=== PATIENT | female | born 1950 | race Caucasian/White ===

== ENCOUNTER 2023-03-06 18:10 | Observation (INO) | payer OTHER, SELFPAY ==
--- NOTE | ~2023-03-06 | CT_ITS ---
Non-contrast Head CT History: Weakness Technique: Axial non-contrast imaging of the brain was performed. Dose reduction technique was used on this scan by utilizing automated exposure control and iterative reconstruction technique. The dose -length product (DLP) was 756.67 mGy-cm. Findings: There is no evidence of intracranial hemorrhage, mass lesion, or acute infarct. There is e xtensive encephalomalacia involving the right posterior temporal, occipital, and high posterior right parietal lobes. There are small metallic foreign bodies are clips in the region of encephalomalacia. There are additional metallic foreign bodies are clips in the cerebellum. The ventricles and subarac hnoid spaces are mildly dilated. Right parietal craniotomy change noted. The visualized paranasal si nuses and mastoid air cells are clear. Impression: No acute abnormality seen. Extensive encephalomalacia involving the right posterior temporal lobe, right occipital lobe, and hig h posterior right parietal lobe. Findings could be posttraumatic or postsurgical in nature. Correlate with relevant clinical history. Reviewed, dictated and finalized at location . LY COACH Impression: No acute abnormality seen. Extensive encephalomalacia involving the right posterior temporal lobe, right o ccipital lobe, and high posterior right parietal lobe. Findings could be posttr aumatic or postsurgical in nature. Correlate with relevant clinical history.
--- NOTE | ~2023-03-06 | XR_ITS ---
EXAMINATION: XR chest 1V portable DATE: 03/06/2023 20:07 INDICATION: Weakness. Hypertension. TECHNIQUE: A single frontal view of the chest was obtained. COMPARISON: None. FINDINGS: There is mild atelectasis in left lower lung zone. No pleural effusion or pneumothorax. The heart size is normal. Breast implants are noted. IMPRESSION: 1. Mild atelectasis in left lower lung zone. Reviewed, dictated and finalized at location E. SECURITY OFFICER
[2023-03-06 18:06] VITALS: BP 151/52; PULSE 87; RESP 17; TEMP 36.4; O2SAT 100
[2023-03-06 18:16] LABS: Glucose Point of Care 74 mg/dl (65-105)
[2023-03-06 19:06] VITALS: BP 161/89; PULSE 82; RESP 15; O2SAT 100
[2023-03-06 19:19] VITALS: PULSE 89; RESP 17; O2SAT 100
--- NOTE | 2023-03-06 19:19 | ECG_ITS ---
Measurements Intervals [place] Rate: 89 P: 31 NH: 152 QRS: -3 QRSD: 133 T: 24 QT: 393 QTc: 481 Interpretive Statements SINUS RHYTHM RIGHT BUNDLE BRANCH BLOCK BASELINE ARTIFACT- I, II, III, AVR, AVF ABNORMAL ECG NO PREVIOUS ECG AVAILABLE FOR COMPARISON Electronically Signed On 03-07-2023 6:37:59 LOCOMOTIVE OPERATOR by Javier Ba D.O.
--- NOTE | 2023-03-06 19:47 | ED.NEUROSD ---
HPI - Neuro Symptoms/Deficit General Chief Complaint: Neuro Symptoms/Deficit Stated Complaint: neuro symptoms Time Seen by Provider: 03/06/23 19:45 Source: patient and family (sons) Mode of arrival: EMS Limitations: no limitations History of Present Illness HPI Narrative: Patient reportedly started experiencing left sided weakness and slurred speech at 3pm. EMS arrived and found her blood sugar to be 38mg/dL for which she received 1mg glucagon with near immediate resolution of symptoms and without recurrence of symptoms. She has been having right thigh pain and left knee pain after a fall she sustained on . She had presented to [facility] for these injuries for which she received Xray imaging which showed no fractures. She was discharged with advice to take Tylenol. She has been taking 1000mg BID as well as Aleve BID but has remained sore/achy which has limited her mobility. She previously used a 4 prong cane but also has a roller walker but is still unable to get around easily recently secondary to pain. She has essentially been bed bound. In order to limit her movements, she has also decresaed her PO intake so that she will not have to go to the bathroom frequently. LBM had been though she did have an episode of loose non bloody stool while in the ED stretcher. She states that she had been having some abdominal distention but not pain prior to this but no longer, has been passing flatus throughout. Denies opiate use. States she has been taking Boost/Ensure for nutrition but otherwise limited PO intake. Not nauseated, it has been intentional. She takes metformin BID (admits to missing some evening doses occasionally), glimepiride QAM, and pioglitazone/thiazolidinedione QAM. Took AM doses of all 3 today between 8 and 9 am. Also on lisinopril, HCTZ, Tramadol, and simvastatin and HCTZ. Her only complaint at this time is pain. Related Data Allergies Allergy/AdvReac Type Severity Reaction Status Date / Time No Known Allergies Allergy Verified 03/06/23 18:11 [facility] Past Medical History Medical History Non-insulin dependent diabetes mellitus Social History Social History Living arrangements: alone Exam Narrative: GENERAL: Well-appearing, well-nourished, and in no acute distress. HEAD: Normocephalic, atraumatic. EYES: Non injected, non icteric ENT: Nares clear, no rhinorrhea or epistaxis. NECK: Supple. CHEST: Speaks in full sentences. No respiratory distress. HEART: Regular rate and rhythm. . ABDOMEN: Obese, Soft, nondistended. Non tender to palpation. EXTREMITIES: No upper extremity drift. Edema in bilateral lower extremities. Difficulty lifting R leg off of bed secondary to pain. No ecchymosis along right lateral proximal leg. SKIN: Warm, dry, no rash. NEURO: No focal deficits. Alert and oriented x3. Speaks clearly without aphasia or dysarthria. No abnormal movements appreciated. PSYCH: Normal mood and affect. Course Vital Signs Vital signs: Vital Signs Temperature 97.5 F L 03/06/23 18:06 Pulse Rate 87 03/06/23 18:06 Respiratory Rate 17 03/06/23 18:06 Blood Pressure 151/52 H 03/06/23 18:06 Pulse Oximetry 100 03/06/23 18:06 Oxygen Delivery Room Air 03/06/23 18:06 Temperature 97.5 F L 03/06/23 18:06 Pulse Rate 84 03/06/23 22:52 Respiratory Rate 16 03/06/23 22:52 Blood Pressure 149/67 H 03/06/23 22:52 Pulse Oximetry 100 03/06/23 22:52 Oxygen Delivery Room Air 03/06/23 18:06 MDM - Neuro Symptoms/Deficit MDM Narrative Medical decision making narrative: Patient presents with left sided weakness and slurred speech that occured at 3pm. Resolved after administration of glucagon by EMS due to BS 38. No recurrence of symptoms. Patient is afebrile with reassuring VS. Physical exam without focal neurological defects though has difficulty lifting
[2023-03-06 20:23] LABS: Basophils Percent Auto 0.2 % (0.2-1.2); Eosinophils Percent Auto 0.1 % (0-4.4); Hemoglobin 11.3 g/dL (12.0-15.0); Immature Granulocyte Absolute 0.06 K/mm3 (0.00-0.031); Immature Granulocyte Percent A 0.5 % (0-0.5); Lymphocytes Absolute Auto 1.37 K/mm3 (0.9-3.2); Lymphocytes Percent Auto 10.5 % (18.3-44.2); Mean Corpuscular HGB Conc 31.4 g/dl (32-36); Mean Corpuscular Volume 95.5 fl (80-100); Mean Platelet Volume 10.8 fl (7.4-10.4); Monocytes Absolute Auto 0.8 K/mm3 (0.1-0.6); Monocytes Percent Auto 6.1 % (2.6-8.5); Neutrophils Absolute Auto 10.8 K/mm3 (1.3-6.7); Neutrophils Percent Auto 82.6 % (45.5-73.1); Platelet Count Result 324 k/mm3 (150-375); Red Blood Count 3.77 M/mm3 (4.2-5.4); White Blood Count 13.1 K/mm3 (4.5-10.0)
[2023-03-06 20:37] VITALS: PULSE 84; RESP 20; O2SAT 100
[2023-03-06 20:37] LABS: Alanine Aminotransferase 19 U/L (6-35); Albumin Level 4.4 g/dL (3.5-5.1); Alkaline Phosphatase 53 U/L (38-126); Anion Gap 10 mmol/L (8-16); Aspartate Amino Transferase 35 U/L (14-36); Blood Urea Nitrogen 41 mg/dL (7-17); Calcium 9.8 mg/dL (8.4-10.2); Carbon Dioxide 30 mmol/L (22-30); Chloride 98 mmol/L (98-107); Estimated CRCL calculation 77 ml/min; Estimated Glomerular Filt Rate > 60; Glucose 285 mg/dL (65-110); Potassium 4.7 mmol/L (3.4-5.0); Sodium 138 mmol/L (137-145)
[2023-03-06 20:42] LABS: Partial Thromboplastin Time 32.8 SECONDS (22.3-36.8); Prothrombin Time 13.4 Seconds (11.1-14.7)
[2023-03-06 20:46] LABS: Troponin I < 0.012 ng/mL (0.000-0.034)
[2023-03-06] MEDS: OCTREOTIDE ACETATE 100 MCG/ML VIAL SUB-Q (21:19)
[2023-03-06 21:22] VITALS: BP 139/66; PULSE 87; RESP 20; O2SAT 99
--- NOTE | 2023-03-06 21:23 | PC.NURSE ---
Pt c/o hip pain. EDP made aware.
[2023-03-06] MEDS: HYDROcodone/acetaminophen (*CRX) 5-325 MG TABLET 1 TAB PO (21:29)
[2023-03-06] MEDS: ACETAMINOPHEN 325 MG TABLET 650 MG PO (21:29)
[2023-03-06 22:41] LABS: Glucose Point of Care 181 mg/dl (65-105)
[2023-03-06 22:52] VITALS: BP 149/67; PULSE 84; RESP 16; O2SAT 100
--- NOTE | 2023-03-07 00:03 | PC.NURSE ---
Assumed care of pt. Report received from SHANNA Mcneal. Pt laying per cart with family at bedside. Pt wet and linen's changed.
[2023-03-07 00:32] LABS: Glucose Point of Care 192 mg/dl (65-105)
[2023-03-07 01:59] VITALS: BP 146/65; PULSE 81; RESP 20; TEMP 35.9; O2SAT 100
[2023-03-07 02:18] VITALS: BMI 38.7
--- NOTE | 2023-03-07 02:32 | ADMGEN ---
This patient, Jeimy Penn, was admitted to Medical Room 250-01. Patient/family oriented to hospital policies and general routines including ID bracelet, bed and alarms, visiting hours, pain management, procedures, bathroom and other care routines, personal items, smoking policy, room service/diet, and visiting hours. Information on how to activate the Rapid Response Team has been discussed. Patient/Family are encouraged to report perceived risks to care and to ask questions if they do not understand what they are told or what they should do.
[2023-03-07] MEDS: ACETAMINOPHEN 325 MG TABLET 650 MG PO (03:42)
[2023-03-07 05:25] VITALS: BP 141/62; PULSE 80; RESP 20; TEMP 36.1; O2SAT 99
[2023-03-07] MEDS: KETOROLAC 30 MG/ML VIAL (*BKC) IV PUSH (06:32)
--- NOTE | 2023-03-07 07:18 | PM.IMHP ---
H&P: HPI History of Present Illness Date/Time: 03/07/23 07:18 Chief Complaint: hypoglycemia left knee pain history of fall Narrative: This is a 72 year old female with a significant past medical history of vertigo, hypertension, hyperlipidemia, DM II who presented to the hospital with complaints of left sided weakness and slurred speech that started around 3 p.m. yesterday. EMS was called and they checked her blood glucose and she was found to be 38mg/dl. She was given 1mg glucagon with immediate resolution of her symptoms. Patient states that she sustained a ground level fall on and started having left knee pain and right thigh pain. She presented to the hospital in [place] where they did x-rays that did not show any acute fractures, she was released, and was told to take OTC medications for pain control. Patient went home and was taking Tylenol and Aleve however she did not have much relief. She normally uses just a cane to get around the house but has been requiring a wheeled walker due to her limited mobility. She admits to decreasing her po intake so that she did not have to get up as often to use the bathroom. She took her medications including metformin, glimepiride, and pioglitazone/thiazolidinedione earlier that morning which likely contributed to her hypoglycemic episode considering the decreased po intake. She is currently only complaining of left knee and right thigh pain. Patient lives alone and is concerned about her inability to get around and ambulate. She is being admitted for PT/OT evaluation and to set up outpatient rehab needs.Work up in the hospital included a chest x-ray that revealed mild atelectasis in the left lower lung zone. She also had a head CT which did not show any acute abnormality seen, extensive encephalomalacia involving the right posterior temporal lobe, right occipital lobe and high posterior right parietal lobe. EKG NSR with Right BBB with rate of 89. On examination today patient is alert and oriented x3, lying in the bed. She reports that her pain is 10/10 in her left knee and right thigh. VSS, she is on room air, she is afebrile. She denies any fever, chills, nausea, vomiting, diarrhea, abdominal pain, shortness of breath, or chest pain.Labs yesterday revealed WBC 13.1, Hgb 11.3, Hct 36.0, BG 181-285, liver enzymes normal, troponin negative. PT and OT are ordered to evaluate and treat. Case coordination consulted for outpatient rehab needs. Review of Systems Review of Systems: All systems reviewed & are unremarkable except as noted in HPI and below Constitutional: Constitutional: Reports as per HPI and Reports no additional constitutional complaints Eyes: Eyes: Reports as per HPI and Reports no additional eye complaints ENT: Reports system reviewed and no additional complaints, except as documented and Reports as per HPI Cardiovascular: Cardiovascular: Reports as per HPI and Reports no additional cardiovascular complaints Respiratory: Respiratory: Reports as per HPI and Reports no additional respiratory complaints Gastrointestinal: Gastrointestinal: Reports as per HPI and Reports no additional gastrointestinal complaints Genitourinary: Genitourinary: Reports no additional female genitourinary complaints and Reports as per HPI Musculoskeletal: Musculoskeletal: Reports no additional musculoskeletal complaints and Reports as per HPI Integumentary/Breasts: Skin/Breast: Reports system reviewed and no additional complaints, except as docu and Reports as per HPI Neurologic: Reports system reviewed and no additional complaints, except as documented and Reports as per HPI Psychiatric: Psychiatric: Reports no additional psychiatric complaints and Reports as per HPI [facility] Past Medical History Medical History (Updated 03/07/23 @ 13:20 by Marlene Angulo, DEV) Hyperlipidemia Hypertension Non-insulin dependent diabetes mellitus Vertigo Surgical History Surgical History (Updated 03/07/23 @ 12:54 by
[2023-03-07 08:00] VITALS: PULSE 80; RESP 20; O2SAT 99
[2023-03-07 08:20] LABS: Glucose Point of Care 182 mg/dl (65-105)
[2023-03-07] MEDS: PIOGLITAZONE HCL 30 MG TABLET PO (09:26)
[2023-03-07] MEDS: traMADol HCL (*CRX) 25 MG TABLET 75 MG PO ×3 (09:26→22:53)
[2023-03-07] MEDS: metFORMIN HCL 500 MG TABLET 1000 MG PO ×2 (09:26→17:46)
[2023-03-07] MEDS: hydroCHLOROthiazide 25 MG TABLET PO (09:26)
[2023-03-07] MEDS: lisinopriL 20 MG TABLET 40 MG PO (09:26)
[2023-03-07] MEDS: ENOXAPARIN 40 MG/0.4 ML SYRINGE SUB-Q (09:32)
[2023-03-07 12:22] LABS: Glucose Point of Care 177 mg/dl (65-105)
[2023-03-07 14:08] LABS: Basophils Percent Auto 0.3 % (0.2-1.2); Eosinophils Absolute Auto 0.1 K/mm3 (0-0.3); Eosinophils Percent Auto 1.3 % (0-4.4); Hematocrit 35.6 % (37.0-47.0); Immature Granulocyte Absolute 0.03 K/mm3 (0.00-0.031); Immature Granulocyte Percent A 0.4 % (0-0.5); Lymphocytes Absolute Auto 1.68 K/mm3 (0.9-3.2); Lymphocytes Percent Auto 23.3 % (18.3-44.2); Mean Corpuscular HGB Conc 30.9 g/dl (32-36); Mean Corpuscular Hemoglobin 29.8 pg (26-34); Mean Corpuscular Volume 96.5 fl (80-100); Mean Platelet Volume 10.6 fl (7.4-10.4); Monocytes Absolute Auto 0.7 K/mm3 (0.1-0.6); Monocytes Percent Auto 9.3 % (2.6-8.5); Neutrophils Absolute Auto 4.7 K/mm3 (1.3-6.7); Neutrophils Percent Auto 65.4 % (45.5-73.1); Platelet Count Result 311 k/mm3 (150-375); Red Blood Count 3.69 M/mm3 (4.2-5.4); White Blood Count 7.2 K/mm3 (4.5-10.0)
[2023-03-07 14:27] LABS: Alanine Aminotransferase 18 U/L (6-35); Albumin Level 4.2 g/dL (3.5-5.1); Alkaline Phosphatase 61 U/L (38-126); Anion Gap 8 mmol/L (8-16); Aspartate Amino Transferase 26 U/L (14-36); Blood Urea Nitrogen 40 mg/dL (7-17); Calcium 9.5 mg/dL (8.4-10.2); Carbon Dioxide 28 mmol/L (22-30); Chloride 101 mmol/L (98-107); Estimated CRCL calculation 50 ml/min; Estimated Glomerular Filt Rate 49; Glucose 231 mg/dL (65-110); Magnesium 1.7 mg/dL (1.6-2.3); Phosphorus 3.2 mg/dL (2.5-4.5); Potassium 4.6 mmol/L (3.4-5.0); Sodium 137 mmol/L (137-145)
[2023-03-07] MEDS: NAPROXEN 375 MG TABLET PO (16:16)
[2023-03-07 16:26] LABS: Hemoglobin A1C 5.8 % (<5.7)
[2023-03-07 16:54] VITALS: BP 135/63; PULSE 76; RESP 16; TEMP 36.1; O2SAT 97
[2023-03-07 17:13] LABS: Glucose Point of Care 156 mg/dl (65-105)
[2023-03-07 20:39] VITALS: BP 143/85; PULSE 80; RESP 16; TEMP 36.4; O2SAT 100
[2023-03-07] MEDS: SIMVASTATIN 20 MG TABLET PO (20:40)
[2023-03-07 20:47] LABS: Glucose Point of Care 201 mg/dl (65-105)
[2023-03-08 05:00] VITALS: BP 138/64; PULSE 83; RESP 16; TEMP 36.6; O2SAT 97
[2023-03-08] MEDS: traMADol HCL (*CRX) 25 MG TABLET 75 MG PO ×2 (05:09→11:21)
[2023-03-08 05:59] LABS: Basophils Percent Auto 0.3 % (0.2-1.2); Eosinophils Absolute Auto 0.1 K/mm3 (0-0.3); Eosinophils Percent Auto 1.5 % (0-4.4); Hematocrit 34.1 % (37.0-47.0); Hemoglobin 10.4 g/dL (12.0-15.0); Immature Granulocyte Absolute 0.02 K/mm3 (0.00-0.031); Immature Granulocyte Percent A 0.3 % (0-0.5); Lymphocytes Absolute Auto 2.36 K/mm3 (0.9-3.2); Lymphocytes Percent Auto 35.2 % (18.3-44.2); Mean Corpuscular HGB Conc 30.5 g/dl (32-36); Mean Corpuscular Hemoglobin 29.6 pg (26-34); Mean Corpuscular Volume 97.2 fl (80-100); Mean Platelet Volume 10.4 fl (7.4-10.4); Monocytes Absolute Auto 0.7 K/mm3 (0.1-0.6); Monocytes Percent Auto 9.9 % (2.6-8.5); Neutrophils Absolute Auto 3.5 K/mm3 (1.3-6.7); Neutrophils Percent Auto 52.8 % (45.5-73.1); Platelet Count Result 319 k/mm3 (150-375); Red Blood Count 3.51 M/mm3 (4.2-5.4); Red Cell Distribution Width 14.2 % (11.5-14.5); White Blood Count 6.7 K/mm3 (4.5-10.0)
[2023-03-08 06:11] LABS: Alanine Aminotransferase 16 U/L (6-35); Alkaline Phosphatase 57 U/L (38-126); Anion Gap 8 mmol/L (8-16); Aspartate Amino Transferase 22 U/L (14-36); Bilirubin,Total 0.9 mg/dL (0.2-1.3); Blood Urea Nitrogen 42 mg/dL (7-17); Calcium 9.3 mg/dL (8.4-10.2); Carbon Dioxide 29 mmol/L (22-30); Chloride 101 mmol/L (98-107); Estimated CRCL calculation 54 ml/min; Estimated Glomerular Filt Rate 54; Glucose 147 mg/dL (65-110); Potassium 4.5 mmol/L (3.4-5.0); Sodium 138 mmol/L (137-145)
[2023-03-08] MEDS: metFORMIN HCL 500 MG TABLET 1000 MG PO (08:09)
[2023-03-08] MEDS: lisinopriL 20 MG TABLET 40 MG PO (08:09)
[2023-03-08] MEDS: PIOGLITAZONE HCL 30 MG TABLET PO (08:09)
[2023-03-08] MEDS: hydroCHLOROthiazide 25 MG TABLET PO (08:09)
[2023-03-08] MEDS: NAPROXEN 375 MG TABLET PO (08:10)
[2023-03-08] MEDS: ENOXAPARIN 40 MG/0.4 ML SYRINGE SUB-Q (08:10)
[2023-03-08 08:14] VITALS: RESP 16; O2SAT 97
[2023-03-08 08:43] LABS: Glucose Point of Care 185 mg/dl (65-105)
--- NOTE | 2023-03-08 10:45 | PM.DS ---
DS: Admitting Diagnosis Discharge Date 03/08/23 Admitting Diagnosis weakness left knee pain fall hypoglycemia leukocytosis NIDDM hypertension hyperlipidemia DS: Discharge Diagnosis Discharge Diagnosis (1) Weakness: Code(s): R53.1 - Weakness Status: Acute (2) Left knee pain: Code(s): M25.562 - Pain in left knee Status: Acute (3) Fall: Code(s): W19.XXXA - Unspecified fall, initial encounter Status: Acute (4) Hypoglycemia secondary to sulfonylurea: Qualifiers: Encounter type: initial encounter Injury intent: accidental or unintentional Qualified Code(s): T38.3X1A - Poisoning by insulin and oral hypoglycemic [antidiabetic] drugs, accidental (unintentional), initial encounter; E16.0 - Drug-induced hypoglycemia without coma Code(s): T38.3X1A - Poisoning by insulin and oral hypoglycemic [antidiabetic] drugs, accidental (unintentional), initial encounter; E16.0 - Drug-induced hypoglycemia without coma Status: Acute (5) Leukocytosis: Qualifiers: Leukocytosis type: unspecified Qualified Code(s): D72.829 - Elevated white blood cell count, unspecified Code(s): D72.829 - Elevated white blood cell count, unspecified Status: Acute (6) Non-insulin dependent diabetes mellitus: Status: Chronic (7) Hypertension: Code(s): I10 - Essential (primary) hypertension Status: Chronic (8) Hyperlipidemia: Code(s): E78.5 - Hyperlipidemia, unspecified Status: Chronic DS: Summary Hospital Course Reason for hospitalization: weakness left knee pain fall Hospital Course: This is a 72 year old female who presented to the hospital with left sided weakness and slurred speech. Patient also had a recent fall with left knee pain that she has been dealing with. Patient was found to be hypoglycemic by EMS and she was given glucagon IM. Her left sided weakness and slurred speech resolved. She was admitted for SNF placement as she lives alone and has been having trouble getting around her home and completing ADLs. Work up in the hospital included a chest x-ray that revealed mild atelectasis in the left lower lung zone. She also had a head CT which did not show any acute abnormality seen, extensive encephalomalacia involving the right posterior temporal lobe, right occipital lobe and high posterior right parietal lobe. EKG NSR with Right BBB with rate of 89. On examination today patient is alert and oriented x3, sitting in the chair. She has been doing well with PT/OT. Labs today were essentially unrevealing. VSS, she is afebrile, she is currently on room air. Patient is stable for discharge to [facility]. Status at Discharge Cognitive/behavioral status at discharge: Alert and oriented x4 Functional status at discharge: uses cane/walker Overall status at discharge: patient is progressing back to baseline Time Spent with Patient Time attestation: Total time spent providing and/or coordinating discharge services: Time spent: Greater than 30 minutes Exam Narrative: General: In no acute distress, well nourished Head: atraumatic, no encephalopathy Eyes: EOMI, PERRLA, sclera clear, vision loss to left peripheral field ENT: moist mucous membranes, nasal passages clear Neck: supple, no JVD, no adenopathy, trachea midline Cardiac: Normal S1 and S2. RRR. No murmur, gallops or friction rubs, peripheral pulses intact. Respiratory: Lungs clear to auscultation, no adventitious lung sounds Gastrointestinal: soft, non-distended, non-tender, normoactive bowel sounds. : voiding without difficulty. Extremities: limited ROM in bilateral lower extremities, BUE ROM is normal Skin: clean, dry, intact. No wounds or lesions. Neuro: Alert and oriented x4, cranial nerves intact, no neuro deficits. Psych: normal mood, normal affect, interactive DS: Data Data Completed and Pending Completed studies during hospitalization: Head CT Chest X-ray [place]
[2023-03-08 11:55] LABS: SARS-CoV-2 RNA PCR Negative (Negative)
[2023-03-08 12:00] LABS: Glucose Point of Care 164 mg/dl (65-105)
--- NOTE | 2023-03-08 14:13 | PC.NURSE ---
On 03/08/23, the student, [Kelle Garner], provided care and completed [facility] documentation on this patient. I have reviewed the student's documentation and agree with the findings.
== END 2023-03-08 15:15 ==
LOC: ANHED 20:17 → ANH2MED 03-07 01:02
PROVIDERS: Emergency Medicine; Nurse Practitioner Acute Care; Admitting Provider Internal Medicine; Emergency Provider Student in an Organized Health Care Education/Training Program; PCP Internal Medicine; Visit Provider Internal Medicine
DX: T38.3X1A Poisoning by insulin and oral hypoglycemic [antidiabetic] drugs, accidental (unintentional), initial encounter (principal); E16.0 Drug-induced hypoglycemia without coma; M25.562 Pain in left knee; M79.651 Pain in right thigh; W19.XXXA Unspecified fall, initial encounter; D64.9 Anemia, unspecified; I10 Essential (primary) hypertension; E78.5 Hyperlipidemia, unspecified; I45.10 Unspecified right bundle-branch block; D72.829 Elevated white blood cell count, unspecified; Z99.89 Dependence on other enabling machines and devices; Z79.84 Long term (current) use of oral hypoglycemic drugs; Z79.899 Other long term (current) drug therapy
CPT/HCPCS: 36415; 70450; 71045; 80053; 82948; 83036; 83735; 84100; 84484; 85025; 85610; 85730; 87635; 93005; 96372; 96374; 97110; 97161; 97166; 97530; 99285; A9270; G0378; J1650; J1885; J2354

== ENCOUNTER 2023-03-09 12:15 | Observation (INO) | payer OTHER, SELFPAY ==
[2023-03-09] VITALS (38 sets, daily range): BP systolic 114–148; BP diastolic 52–71; PULSE 69–88; RESP 12–22; TEMP 36.5–36.7; O2SAT 92–100
--- NOTE | ~2023-03-09 | XR_ITS ---
XR hip RT 2V w AP pelvis 03/09/2023 12:51 Indication: Right femur fracture Procedure: AP pelvis and 2 views right hip Comparison: No prior studies for comparison. Findings: There is a displaced right femoral neck fracture with varus angulation. Osteopenia. Pelvic rings are intact. No foreign bodies. Impression: 1: Displaced right femoral neck fracture with varus angulation. Reviewed, dictated and finalized at location B. Impression: 1: Displaced right femoral neck fracture with varus angulation.
--- NOTE | ~2023-03-09 | CT_ITS ---
EXAMINATION: CT pelvis wo con DATE: 03/09/2023 14:50 INDICATION: Right hip fracture TECHNIQUE: High resolution computed tomography (CT) of the pelvis was performed without intravenous c ontrast. Automated exposure control and iterative reconstruction technique were employed. The dose-le ngth product was 866.48 mGy-cm. COMPARISON: None FINDINGS: Comminuted basicervical fracture of the proximal right femur which also involves the medial aspect of the greater trochanter. There is approximately 60 degrees varus angulation with the femoral neck imp acted into the intertrochanteric femur. No other fractures identified. 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 Severe right-sided and mild left-sided facet osteoarthritis at L5-S1. Mild to mod erate bilateral facet osteoarthritis at L4-L5. Multiple diverticula along the visualized sigmoid and distal descending colon without adjacent from trace stranding to suggest diverticulitis. Bladder is n ormal. The uterus is not identified and has likely been surgically resected. No free fluid in the pel vis. No pathologically enlarged pelvic or inguinal lymphadenopathy. IMPRESSION: 1. 60 degrees varus angulation of a basicervical fracture of the proximal right femur. Reviewed, dictated and finalized at location A. CHIEF
--- NOTE | 2023-03-09 12:24 | ECG_ITS ---
Measurements Intervals [place] Rate: 74 P: 27 AR: 155 QRS: -10 QRSD: 125 T: 4 QT: 402 QTc: 447 Interpretive Statements SINUS RHYTHM RIGHT BUNDLE BRANCH BLOCK LOW VOLTAGE- PRECORDIAL LEADS BORDERLINE T WAVE ABNORMALITY- INFERIOR LEADS BASELINE ARTIFACT- I, III, AVR, AVL, AVF, V1-V5, V6 ABNORMAL ECG COMPARED TO ECG 03/06/2023 19:49:11 NO SIGNIFICANT CHANGES Electronically Signed On 03-09-2023 12:54:53 MANAGER DATA by Javier Ba D.O.
[2023-03-09 12:40] LABS: Basophils Percent Auto 0.2 % (0.2-1.2); Eosinophils Absolute Auto 0.1 K/mm3 (0-0.3); Eosinophils Percent Auto 0.7 % (0-4.4); Hematocrit 34.1 % (37.0-47.0); Hemoglobin 10.7 g/dL (12.0-15.0); Immature Granulocyte Absolute 0.04 K/mm3 (0.00-0.031); Immature Granulocyte Percent A 0.4 % (0-0.5); Lymphocytes Absolute Auto 2.13 K/mm3 (0.9-3.2); Lymphocytes Percent Auto 22.8 % (18.3-44.2); Mean Corpuscular HGB Conc 31.4 g/dl (32-36); Mean Corpuscular Hemoglobin 29.8 pg (26-34); Mean Platelet Volume 10.2 fl (7.4-10.4); Monocytes Absolute Auto 0.9 K/mm3 (0.1-0.6); Neutrophils Absolute Auto 6.2 K/mm3 (1.3-6.7); Neutrophils Percent Auto 65.9 % (45.5-73.1); Platelet Count Result 301 k/mm3 (150-375); Red Blood Count 3.59 M/mm3 (4.2-5.4); Red Cell Distribution Width 14.2 % (11.5-14.5); White Blood Count 9.3 K/mm3 (4.5-10.0)
[2023-03-09 12:45] LABS: Alanine Aminotransferase 17 U/L (6-35); Albumin Level 3.9 g/dL (3.5-5.1); Alkaline Phosphatase 60 U/L (38-126); Anion Gap 7 mmol/L (8-16); Aspartate Amino Transferase 23 U/L (14-36); Bilirubin,Total 0.9 mg/dL (0.2-1.3); Blood Urea Nitrogen 34 mg/dL (7-17); Calcium 9.5 mg/dL (8.4-10.2); Carbon Dioxide 29 mmol/L (22-30); Chloride 100 mmol/L (98-107); Estimated CRCL calculation 69 ml/min; Estimated Glomerular Filt Rate > 60; Glucose 107 mg/dL (65-110); Potassium 4.4 mmol/L (3.4-5.0); Sodium 136 mmol/L (137-145)
[2023-03-09 12:49] LABS: INR 1.1; Prothrombin Time 14.5 Seconds (11.1-14.7)
[2023-03-09 12:50] LABS: Partial Thromboplastin Time 28.8 SECONDS (22.3-36.8)
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
--- NOTE | 2023-03-09 14:20 | ED.LOWEXIN ---
HPI - Extremity Injury (Lower) General Chief Complaint: Extremity Injury, Lower Stated Complaint: R hip fx Time Seen by Provider: 03/09/23 12:28 History of Present Illness HPI Narrative: Patient is a 72-year-old female who presents ER with right hip fracture. Patient had a fall early this week and was seen at an outside hospital. Imaging showed no fracture to the leg. Patient had persistent pain and was admitted to the hospital here couple days ago. She was sent to [facility] for rehab yesterday and upon being transferred to a wheelchair and to her son's car she felt 2 subsequent pops. Outside imaging shows a fracture and she was sent back here for further evaluation. No numbness or tingling. No additional trauma. Related Data Home Medications Medication Instructions Recorded Confirmed glimepiride 2 mg tablet 2 mg PO DAILY 03/07/23 03/07/23 glimepiride 4 mg tablet 4 mg PO DAILY 03/07/23 03/07/23 hydrochlorothiazide 25 mg tablet 25 mg PO DAILY 03/07/23 03/07/23 lisinopril 40 mg tablet 40 mg PO DAILY 03/07/23 03/07/23 metformin 500 mg tablet 1,000 mg PO BID 03/07/23 03/07/23 pioglitazone 30 mg tablet 30 mg PO DAILY 03/07/23 03/07/23 simvastatin 20 mg tablet 20 mg PO HS 03/07/23 03/07/23 Allergies Allergy/AdvReac Type Severity Reaction Status Date / Time No Known Allergies Allergy Verified 03/06/23 18:11 Review of Systems Review of Systems: All systems reviewed & are unremarkable except as noted in HPI and below Constitutional: Constitutional: Reports no additional constitutional complaints ENT: Reports system reviewed and no additional complaints, except as documented Cardiovascular: Cardiovascular: Reports no additional cardiovascular complaints Respiratory: Respiratory: Reports no additional respiratory complaints Musculoskeletal: Musculoskeletal: Denies back pain, Reports arthralgias, Denies joint swelling and Denies muscle cramps Neurologic: Reports system reviewed and no additional complaints, except as documented PMF Past Medical History Medical History (Updated 03/09/23 @ 19:04 by Prashant Cruz MD) Cancer of left breast Status post mastectomy and chemotherapy. Hyperlipidemia Hypertension Type 2 diabetes mellitus Vertigo Vocal cord paralysis, unilateral partial Surgical History Surgical History (Updated 03/09/23 @ 16:46 by Ruth Ann Ventura PA-C) History of bilateral mastectomy History of craniotomy History of hysterectomy Social History Social History (Updated 03/09/23 @ 16:18 by Ruth Ann Ventura PA-C) Social History: Surrogate medical decision maker: Code status: Full code. Smoking status: Former smoker Tobacco type: cigarettes Alcohol intake: never Substance use: never Substance use type: does not use Do You Feel Safe in your Home?: Yes Lack of Transportation: No Lack of Food: Never True Current Housing: I Have Housing Concerned About Future Housing: No Difficulty Paying Gas/Electric Bills: No Difficulty Paying for Meds: No Currently Unemployed: No Education: High School Diploma/GED Difficulty w/ Childcare or Family Care: No Living arrangements: alone Spiritual care concerns: No Exam Narrative: GENERAL: Well-appearing, well-nourished, and in no acute distress. HEAD: Normocephalic, atraumatic. ENT: Mucous membranes moist. NECK: Supple. CHEST: Clear to auscultation. No respiratory distress. HEART: Regular rate and rhythm. Normal peripheral pulses. ABDOMEN: Soft, nontender, nondistended. EXTREMITIES: Pain with attempted range of motion at the right hip. No deformity or tenderness the upper extremities or left lower extremity. Neurovascular intact right lower extremity. SKIN: Warm, dry, no rash. NEURO: Alert and oriented x3. PSYCH: Normal mood and affect. Course Course Emergency Course: patient and family informed of results. I discussed the case with Orthopedic surgery who has accepted the patient and patie
--- NOTE | 2023-03-09 16:14 | PM.IMHP ---
H&P: HPI History of Present Illness Date/Time: 03/09/23 17:00 Chief Complaint: Right hip fracture. Narrative: This is a area pleasant 72-year-old female with hypertension, hyperlipidemia, and type 2 diabetes mellitus who presented to the emergency department via EMS from [facility] after x-rays showed a right hip fracture. The patient provides the following history. She had a fall last and was seen in the ED at [facility] in [place] where she had x-rays of her left knee and right hip which were reportedly negative for fracture. She was discharged with instructions to take [id number]-frk-[id number] medications to control her pain. She had been taking Aleve and Tylenol without much benefit. She has not been able to get around well since that time due to the pain and instead of using her cane she has been using a wheeled walker. She was seen in the ED at this facility on 03/06/2023 for evaluation of left-sided weakness and slurred speech which was attributed to hypoglycemia (glucose 38 mg/dL) as her symptoms resolved after receiving glucose and glucagon. She was admitted to the hospital with weakness and PT consult for with goals for rehab placement due to ongoing pain in the left knee and right hip from the fall. Physical therapist notes that the patient seemed to be weak in the right leg which was felt to be due to ongoing pain in her right hip and thigh. She was discharged to [facility] yesterday afternoon and EMS was called to transport her after she was unable to get in the car when her family members came to get her due to significant pain after feeling a ?pop? in the right hip. Right hip x-ray was obtained at [facility] and showed a displaced right femoral neck fracture and she was sent back to the hospital. [facility] Past Medical History Medical History (Updated 03/09/23 @ 19:04 by Prashant Cruz MD) Cancer of left breast Status post mastectomy and chemotherapy. Hyperlipidemia Hypertension Type 2 diabetes mellitus Vertigo Vocal cord paralysis, unilateral partial Surgical History Surgical History (Updated 03/09/23 @ 16:46 by Ruth Ann Ventura PA-C) History of bilateral mastectomy History of craniotomy History of hysterectomy Social History Social History (Updated 03/09/23 @ 16:18 by Ruth Ann Ventura PA-C) Social History: Surrogate medical decision maker: Code status: Full code. Smoking status: Former smoker Tobacco type: cigarettes Alcohol intake: never Substance use: never Substance use type: does not use Do You Feel Safe in your Home?: Yes Lack of Transportation: No Lack of Food: Never True Current Housing: I Have Housing Concerned About Future Housing: No Difficulty Paying Gas/Electric Bills: No Difficulty Paying for Meds: No Currently Unemployed: No Education: High School Diploma/GED Difficulty w/ Childcare or Family Care: No Living arrangements: alone Spiritual care concerns: No Meds Home Medications and Allergies Home Medications Medication Instructions Recorded Confirmed Type glimepiride 2 mg tablet 2 mg PO DAILY 03/07/23 03/07/23 History glimepiride 4 mg tablet 4 mg PO DAILY 03/07/23 03/07/23 History hydrochlorothiazide 25 mg tablet 25 mg PO DAILY 03/07/23 03/07/23 History lisinopril 40 mg tablet 40 mg PO DAILY 03/07/23 03/07/23 History metformin 500 mg tablet 1,000 mg PO BID 03/07/23 03/07/23 History pioglitazone 30 mg tablet 30 mg PO DAILY 03/07/23 03/07/23 History simvastatin 20 mg tablet 20 mg PO HS 03/07/23 03/07/23 History naproxen 375 mg tablet 375 mg PO BIDWM #60 tabs 03/08/23 Rx hydrocodone 5 mg-acetaminophen 325 1 tablet PO Q6H PRN pain #100 tabs 03/09/23 Rx mg tablet Allergies Allergy/AdvReac Type Severity Reaction Status Date / Time No Known Allergies Allergy Verified 03/06/23 18:11 Vital Signs Vital Signs - 24 hr 03/09/23 12:27 03/09/23 13:30 Temperature 97.8 F 97.8 F Pulse Rate 81 78 Respiratory
[2023-03-09] MEDS: ONDANSETRON INJ 4 MG/2 ML VIAL IV PUSH (16:35)
[2023-03-09] MEDS: MORPHINE SULFATE (*CRX) 2 MG/ML INJ IV PUSH ×3 (16:36→22:06)
[2023-03-09 18:21] LABS: Glucose Point of Care 96 mg/dl (65-105)
[2023-03-09] MEDS: SODIUM CHLORIDE 0.9% IV 1,000 ML 125 ML IV CONT (18:25)
--- NOTE | 2023-03-09 21:55 | PC.NURSE ---
[facility] called to say there is no room available as of now but wanted pt update.
--- NOTE | 2023-03-09 21:56 | PC.NURSE ---
pt rates pain 9 out of 10 and MD (Jennifer) okayed giving PRN morphine before the 4 hour laurel
[2023-03-10] VITALS (52 sets, daily range): BP systolic 107–177; BP diastolic 48–83; PULSE 69–92; RESP 13–22; TEMP 36.3; O2SAT 91–100; BMI 40.9
[2023-03-10] MEDS: MORPHINE SULFATE (*CRX) 2 MG/ML INJ IV PUSH ×4 (01:19→20:24)
--- NOTE | 2023-03-10 02:02 | PC.NURSE ---
this rn assumed care of patient. this rn took patient report from Trell Banuelos. Upon obtaining report from TRELL Banuelos, medications were d/c due to pt not going having surgical procedures performed at [facility] and pt being transferred to [place].
[2023-03-10] MEDS: SODIUM CHLORIDE 0.9% IV 1,000 ML 125 ML IV CONT (03:02)
[2023-03-10 03:12] LABS: Glucose Point of Care 130 mg/dl (65-105)
[2023-03-10 06:18] LABS: Basophils Percent Auto 0.1 % (0.2-1.2); Eosinophils Absolute Auto 0.1 K/mm3 (0-0.3); Eosinophils Percent Auto 1.4 % (0-4.4); Hemoglobin 10.4 g/dL (12.0-15.0); Immature Granulocyte Absolute 0.02 K/mm3 (0.00-0.031); Immature Granulocyte Percent A 0.2 % (0-0.5); Lymphocytes Absolute Auto 2.11 K/mm3 (0.9-3.2); Lymphocytes Percent Auto 22.9 % (18.3-44.2); Mean Corpuscular HGB Conc 30.6 g/dl (32-36); Mean Corpuscular Hemoglobin 29.9 pg (26-34); Mean Corpuscular Volume 97.7 fl (80-100); Mean Platelet Volume 10.1 fl (7.4-10.4); Monocytes Absolute Auto 0.8 K/mm3 (0.1-0.6); Monocytes Percent Auto 8.7 % (2.6-8.5); Neutrophils Absolute Auto 6.1 K/mm3 (1.3-6.7); Neutrophils Percent Auto 66.7 % (45.5-73.1); Platelet Count Result 255 k/mm3 (150-375); Red Blood Count 3.48 M/mm3 (4.2-5.4); Red Cell Distribution Width 14.3 % (11.5-14.5); White Blood Count 9.2 K/mm3 (4.5-10.0)
[2023-03-10 06:28] LABS: Anion Gap 9 mmol/L (8-16); Blood Urea Nitrogen 24 mg/dL (7-17); Calcium 8.8 mg/dL (8.4-10.2); Carbon Dioxide 25 mmol/L (22-30); Chloride 103 mmol/L (98-107); Estimated CRCL calculation 78 ml/min; Estimated Glomerular Filt Rate > 60; Glucose 123 mg/dL (65-110); Magnesium 1.7 mg/dL (1.6-2.3); Potassium 4.2 mmol/L (3.4-5.0); Sodium 137 mmol/L (137-145)
--- NOTE | 2023-03-10 07:30 | PC.NURSE ---
assumed care of pt. pt resting on stretcher, no complaints at this time, no distress noted
--- NOTE | 2023-03-10 08:40 | PC.NURSE ---
standard heart healthy diet tray ordered at 0840
--- NOTE | 2023-03-10 10:07 | PC.NURSE ---
Spoke with Helga at bed placement at [facility]. Gave patient update, informed bed still unavailable, will call back when a surgical bed is available.
--- NOTE | 2023-03-10 16:26 | PC.NURSE ---
ordered pt dinner tray.
--- NOTE | 2023-03-10 16:53 | PC.NURSE ---
Called [facility] for update on bed status. still no beds available. pt still on wait list.
--- NOTE | 2023-03-10 21:18 | PM.IMHP ---
H&P: HPI History of Present Illness Date/Time: 03/10/23 20:45 Chief Complaint: Right hip fracture. Narrative: This is a very pleasant 72-year-old female with hypertension, hyperlipidemia, and type 2 diabetes mellitus who presented to the emergency department via EMS from [facility] yesterday afternoon after x-ray showed a right hip fracture. The patient provides the following history. She had a fall last and was seen in the ED at [facility] in [place] where she had x-rays of her left knee and right hip which were reportedly negative for fracture. She was discharged with instructions to take [id number] medications to control her pain. She had been taking Aleve and Tylenol without much benefit. Due to the pain she had not been getting around well at home and instead of using her cane she had been using a wheeled walker though not doing well. She was seen in the ED at this facility on 03/06/2023 for evaluation of left-sided weakness and slurred speech which was attributed to hypoglycemia (glucose was 38 mg/dL at that time) as her symptoms resolved after receiving glucose and glucagon. She was admitted to the hospital with weakness for PT consult with goals for rehab placement due to ongoing pain in the left knee and right hip from the fall last week. Physical therapist's notes that the patient seemed to be weak in the right leg and felt it was due to ongoing pain in her right hip and thigh. Her right leg was never reimaged. She was discharged to [facility] on the and EMS was called to transport her after she was unable to get in the car when her family members came to get her due to severe pain in the right hip. In fact she reports that she felt a ?pop? several times while trying to transfer in the hospital and to the car. Hip x-ray obtained at [facility] not long after arrival showed a displaced right femoral neck fracture and she was sent back to the ER. Pelvis CT showed 60? varus angulation of a basicervical fracture of the proximal right femur and she is being transferred to [place] for surgical repair given the complexity of the fracture. She has been in the emergency department for over 24 hours and is being admitted in this setting, pending transfer. At the time my evaluation she is resting comfortably and she reports that her pain is well controlled as long as she is not up and moving much. Review of Systems Review of Systems: Twelve systems were reviewed. No fever, chills, or sweats. No cold or flu symptoms. No chest pain or shortness of breath. She denies nausea and vomiting. No numbness or tingling distal to the fracture site. Except as documented, all other systems were reviewed and are negative. [facility] Past Medical History Medical History Cancer of left breast Status post mastectomy and chemotherapy. Hyperlipidemia Hypertension Type 2 diabetes mellitus Vertigo Vocal cord paralysis, unilateral partial Surgical History Surgical History History of bilateral mastectomy History of craniotomy History of hysterectomy Social History Social History Social History: Surrogate medical decision maker: Code status: Full code. Smoking status: Former smoker Tobacco type: cigarettes Alcohol intake: never Substance use: never Substance use type: does not use Do You Feel Safe in your Home?: Yes Lack of Transportation: No Lack of Food: Never True Current Housing: I Have Housing Concerned About Future Housing: No Difficulty Paying Gas/Electric Bills: No Difficulty Paying for Meds: No Currently Unemployed: No Education: High School Diploma/GED Difficulty w/ Childcare or Family Care: No Living arrangements: alone Spiritual care concerns: No Meds Home Medications and Allergies Home Me
[2023-03-10] MEDS: HYDROcodone/acetaminophen (*CRX) 5-325 MG TABLET 1 TAB PO (22:48)
[2023-03-10] MEDS: SIMVASTATIN 20 MG TABLET PO (22:48)
[2023-03-11 06:00] VITALS: BP 115/56; PULSE 74; RESP 16; TEMP 36.1; O2SAT 93
[2023-03-11 07:24] LABS: Basophils Percent Auto 0.3 % (0.2-1.2); Eosinophils Absolute Auto 0.2 K/mm3 (0-0.3); Eosinophils Percent Auto 1.9 % (0-4.4); Immature Granulocyte Absolute 0.03 K/mm3 (0.00-0.031); Immature Granulocyte Percent A 0.4 % (0-0.5); Lymphocytes Absolute Auto 1.96 K/mm3 (0.9-3.2); Lymphocytes Percent Auto 24.6 % (18.3-44.2); Mean Corpuscular HGB Conc 30.3 g/dl (32-36); Mean Corpuscular Hemoglobin 29.8 pg (26-34); Mean Corpuscular Volume 98.2 fl (80-100); Mean Platelet Volume 10.2 fl (7.4-10.4); Monocytes Absolute Auto 0.7 K/mm3 (0.1-0.6); Monocytes Percent Auto 8.7 % (2.6-8.5); Neutrophils Absolute Auto 5.1 K/mm3 (1.3-6.7); Neutrophils Percent Auto 64.1 % (45.5-73.1); Platelet Count Result 260 k/mm3 (150-375); Red Blood Count 3.36 M/mm3 (4.2-5.4); Red Cell Distribution Width 14.4 % (11.5-14.5)
[2023-03-11 07:33] LABS: Anion Gap 5 mmol/L (8-16); Blood Urea Nitrogen 22 mg/dL (7-17); Carbon Dioxide 31 mmol/L (22-30); Chloride 101 mmol/L (98-107); Estimated CRCL calculation 78 ml/min; Estimated Glomerular Filt Rate > 60; Glucose 132 mg/dL (65-110); Magnesium 1.7 mg/dL (1.6-2.3); Potassium 4.3 mmol/L (3.4-5.0); Sodium 137 mmol/L (137-145)
--- NOTE | 2023-03-11 07:40 | PM.PNORT ---
Progress Note: A&P Assessment and Plan (1) Closed displaced fracture of right femoral neck: Code(s): S72.001A - Fracture of unspecified part of neck of right femur, initial encounter for closed fracture Status: Acute Assessment and Plan: Original plan for transfer to [facility] for evaluation and possible surgery right hip. Awaiting bed availability. Patient in emergency room and unavailable to transfer yesterday. Admitted to floor for non operative care until transfer bed available. Bed rest, nonweightbearing. Continue with pain control. Mechanical DVT prophylaxis. Plan to transfer when bed available. Subjective Subjective Date/Time Seen: 03/11/23 07:40 Principal diagnosis: right hip fracture Interval history: patient admitted from emergency room as transfer bed unavailable at this time. Patient resting comfortably. Exam Const: General: No confusion Orientation/consciousness: patient oriented x3 and No confusion HENMT: Head: normal to inspection, normocephalic and atraumatic Eyes: Conjunctivae: conjunctivae normal Sclera: sclerae normal Neck: Neck: supple and nontender Chest: Chest palpation & inspection: normal inspection of the chest Resp: Effort & Inspection: normal respiratory effort and no audible wheezes Cardio: Rate: regular rate Rhythm: regular rhythm GI: GI Palp: No abdominal tenderness and Yes Soft to palpation : General: Yes deferred Skin: General skin exam: no rashes or lesions noted Neuro: General: patient oriented x3 and No confusion Extrem: General: capillary refill normal Right upper extremity: normal to inspection Left upper extremity: normal to inspection Right lower extremity: hip/thigh Details: tenderness Location: of the hip Location: laterally and swelling Location: at the hip ( mild), ankle ( able to actively flex and extend ankle) Details: no tenderness and foot Details: normal capillary refill, toes with normal ROM, vascular exam Details: dorsalis pedis pulse present and normal capillary refill and motor-sensory exam Details: light-touch normal Location: in all toes; no tenderness Left lower extremity: normal to inspection, hip/thigh Details: no tenderness and no swelling, lower leg, ankle (no calf tenderness) Details: normal ROM; no tenderness and foot Details: normal capillary refill, vascular exam Details: dorsalis pedis pulse present and normal capillary refill and motor-sensory exam light-touch normal in all toes Psych: Affect: normal affect Objective Data Vital Signs Vital Signs: Vital Signs - 24 hr 01/27/24 11:30 03/10/23 13:06 03/10/23 16:25 Temperature Pulse Rate 77 74 80 Respiratory Rate 17 18 18 Blood Pressure 116/56 L 115/60 128/76 Pulse Oximetry 100 94 97 Oxygen Delivery 03/10/23 19:30 03/10/23 20:13 03/10/23 18:00 Temperature Pulse Rate 92 83 Respiratory Rate 15 18 Blood Pressure 107/55 L 120/60 Pulse Oximetry 99 95 97 Oxygen Delivery Room Air 03/10/23 21:18 03/10/23 21:00 03/10/23 22:21 Temperature 97.4 F L 97.4 F L Pulse Rate 80 Respiratory Rate 16 Blood Pressure 155/77 H Pulse Oximetry 93 Oxygen Delivery Room Air 03/11/23 06:00 Temperature 96.9 F L Pulse Rate 74 Respiratory Rate 16 Blood Pressure 115/56 L Pulse Oximetry 93 Oxygen Delivery Intake/Output Intake/Output: Intake & Output 03/08/23 03/09/23 03/10/23 03/11/23 23:59 23:59 23:59 23:59 Intake Total 2000 50 Output Total 1700 1800 200 Balance -1700 200 -150 Meds/Results Medications: Active Medications Generic Name Dose Route Start Last Admin Trade Name Freq PRN Reason Stop Dose Admin Acetaminophen 650 mg 03/10/23 17:45 Acetaminophen 325 Mg Tablet PO Q4H PRN Mild Pain (1-3) or Fever Hydrocodone Bitart/Acetaminophen 1 tab 03/10/23 17:45 03/10/23 22:48 Hydrocodone/Acetaminophen (*Crx) 5-325 Mg Tablet PO 1 tab Q4H PRN Administration Pain Rate
[2023-03-11 07:48] LABS: Glucose Point of Care 135 mg/dl (65-105)
[2023-03-11] MEDS: hydroCHLOROthiazide 25 MG TABLET PO (08:28)
[2023-03-11] MEDS: lisinopriL 20 MG TABLET 40 MG PO (08:28)
[2023-03-11] MEDS: PIOGLITAZONE HCL 30 MG TABLET PO (08:28)
[2023-03-11 08:30] VITALS: BP 105/83; PULSE 79; O2SAT 97
[2023-03-11] MEDS: HYDROcodone/acetaminophen (*CRX) 5-325 MG TABLET 1 TAB PO ×3 (09:00→20:22)
[2023-03-11 11:22] LABS: Glucose Point of Care 188 mg/dl (65-105)
[2023-03-11 12:04] LABS: Phosphorus 3.3 mg/dL (2.5-4.5)
[2023-03-11 14:00] VITALS: BP 107/44; PULSE 74; RESP 16; TEMP 36.5; O2SAT 95
[2023-03-11 17:04] LABS: Glucose Point of Care 110 mg/dl (65-105)
--- NOTE | 2023-03-11 17:35 | PM.IMPN ---
Progress Note: A&P Assessment and Plan (1) Closed displaced fracture of right femoral neck: Code(s): S72.001A - Fracture of unspecified part of neck of right femur, initial encounter for closed fracture Status: Acute (2) Type 2 diabetes mellitus: Code(s): E11.9 - Type 2 diabetes mellitus without complications Status: Acute (3) Acute pain: Code(s): R52 - Pain, unspecified Status: Acute (4) Fall: Code(s): W19.XXXA - Unspecified fall, initial encounter Status: Acute (5) Hyperlipidemia: Code(s): E78.5 - Hyperlipidemia, unspecified Status: Chronic (6) Hypertension: Code(s): I10 - Essential (primary) hypertension Status: Chronic (7) Non-insulin dependent diabetes mellitus: Status: Chronic (8) Left knee pain: Code(s): M25.562 - Pain in left knee Status: Acute (9) Normocytic anemia: Code(s): D64.9 - Anemia, unspecified Status: Acute Plan Place patient on medical-surgical unit under observation status She has complicated, displaced right hip which needs her to be transferred in tertiary center for higher level of care ER physician spoke with [facility] in [employer] and patient is accepted for transfer pending bed availability Orthopedic evaluated the patient and wanted to continue with pain management We will continue with her home meds Hold metformin, patient started on Accu-Cheks with Insulin coverage as per protocol Continue with oral/IV pain meds for pain control DC planning to tertiary care center once bed is available for higher level of care and definitive operative management ? Patient seen and examined at bedside during my morning rounds ? Collaborated with patient's nurse at the bedside in detail and addressed all concerns ? Labs, electrolytes, radiology, investigations and test results reviewed ? Consult/Nursing/Ancilliary notes on the chart reviewed and appreciated ? Spoke with patient/son at the bedside and answered all the questions that they had Repeat labs in a.m. Electrolyte replacement as per protocol. Patient will be monitored very closely on the floor. Further recommendations as per the hospital course. Time Spent With Patient Time with patient: 25 - 35 minutes Subjective Date/time seen: 03/11/23 17:35 Interval history: Patient lying in bed during my morning rounds. Complains of right hip with the 90 being transferred to [facility]. Spoke with patient's son in detail at bedside. Review of Systems Review of Systems: 14 systems were reviewed with pertinent positives and negatives per HPI. Except as documented in the HPI/progress notes, all other systems were reviewed and are negative. All systems reviewed & are unremarkable except as noted in HPI and below Exam Narrative: PHYSICAL EXAMINATION: Vital signs: Please see the chart General physical exam: 72 years old morbidly obese female lying in bed, appears tired and fatigued, complains of pain in the right hip Head/eyes: Atraumatic, EOMI, PERRLA ENT: Moist mucous membranes, nasal passages clear Neck: Supple, full range of motion, trachea midline CVS: S1 + S2, regular rate and rhythm, no murmurs Respiratory: Bilaterally fair air entry in both lung pope, mild B/L crackles, symmetric chest expansion, no distress Abdomen: Soft, non-tender, bowel sounds +ve, no organomegaly Extremities: No clubbing, no cyanosis, no edema, no calf tenderness Musculoskeletal: + right leg is shortened, tender and externally rotated, adequate range of motion of other extremities, no muscle spasms Skin: Warm, dry, no jaundice, no cyanosis Neurological: Awake, alert, oriented x 3, cranial nerves II-XII intact, no focal neurological deficits Psychiatric: Normal mood, non suicidal Objective Data Vital Signs Vital Signs: Vital Signs - 24 hr 03/10/23 19:30 03/10/23 20:13 03/10/23 18:00 Temperature Pulse Rate 92 8
[2023-03-11 19:09] LABS: Anion Gap 7 mmol/L (8-16); Blood Urea Nitrogen 23 mg/dL (7-17); Carbon Dioxide 27 mmol/L (22-30); Chloride 100 mmol/L (98-107); Estimated CRCL calculation 78 ml/min; Estimated Glomerular Filt Rate > 60; Glucose 164 mg/dL (65-110); Potassium 4.2 mmol/L (3.4-5.0); Sodium 134 mmol/L (137-145)
[2023-03-11 20:00] VITALS: PULSE 84; RESP 18; O2SAT 97
[2023-03-11] MEDS: SIMVASTATIN 20 MG TABLET PO (20:23)
[2023-03-11] MEDS: ENOXAPARIN 30 MG/0.3 ML SYRINGE SUB-Q (20:23)
[2023-03-11 20:24] VITALS: BP 147/61; PULSE 84; RESP 18; TEMP 36.9; O2SAT 97
[2023-03-11 21:16] LABS: Glucose Point of Care 159 mg/dl (65-105)
--- NOTE | 2023-03-12 11:38 | PM.TDS ---
Transfer Discharge Sum: Prov Provider Date of admission: 03/10/23 17:45 Primary care physician: Crow Goodwin, Admitting clinician: Quiuqe Amin MD Attending physician on admission: Quique Amin Consults: 03/09/23 15:34 Consult to Physician Routine Comment: Consulting Provider: Jadiel Stevenson Reason for consultation: hip fracture Has provider been notified: Yes Attending physician on discharge: Quique Amin Discharging clinician: Quique Amin Anticipated date of transfer: 03/11/23 Receiving physician/facility: [facility] in [place], [place] DS: Admitting Diagnosis Discharge Date 03/11/23 Admitting Diagnosis Complex closed displaced fracture of right femoral neck DS: Discharge Diagnosis Discharge Diagnosis (1) Closed displaced fracture of right femoral neck: Code(s): S72.001A - Fracture of unspecified part of neck of right femur, initial encounter for closed fracture Status: Acute (2) Type 2 diabetes mellitus: Code(s): E11.9 - Type 2 diabetes mellitus without complications Status: Acute (3) Acute pain: Code(s): R52 - Pain, unspecified Status: Acute (4) Fall: Code(s): W19.XXXA - Unspecified fall, initial encounter Status: Acute (5) Hyperlipidemia: Code(s): E78.5 - Hyperlipidemia, unspecified Status: Chronic (6) Hypertension: Code(s): I10 - Essential (primary) hypertension Status: Chronic (7) Weakness: Code(s): R53.1 - Weakness Status: Acute (8) Non-insulin dependent diabetes mellitus: Status: Chronic Transfer Discharge Sum: Med Medications Active and Home Medications: Home Medications glimepiride 2 mg tablet 2 mg PO DAILY 03/07/23 [History Confirmed 03/10/23] glimepiride 4 mg tablet 4 mg PO DAILY 03/07/23 [History Confirmed 03/10/23] hydrochlorothiazide 25 mg tablet 25 mg PO DAILY 03/07/23 [History Confirmed 03/10/23] lisinopril 40 mg tablet 40 mg PO DAILY 03/07/23 [History Confirmed 03/10/23] metformin 500 mg tablet 1,000 mg PO BID 03/07/23 [History Confirmed 03/10/23] pioglitazone 30 mg tablet 30 mg PO DAILY 03/07/23 [History Confirmed 03/10/23] simvastatin 20 mg tablet 20 mg PO HS 03/07/23 [History Confirmed 03/10/23] naproxen 375 mg tablet 375 mg PO BIDWM #60 tabs 03/08/23 [Rx Confirmed 03/10/23] hydrocodone 5 mg-acetaminophen 325 mg tablet 1 tablet PO Q6H PRN pain #100 tabs 03/09/23 [Rx Confirmed 03/10/23] Transfer Discharge Sum: Hosp Hospital Course Hospital course: H&P: HPI History of Present Illness Date/Time: 03/10/23? 20:45 Chief Complaint: Right hip fracture. Narrative: This is a very pleasant 72-year-old female with hypertension, hyperlipidemia, and type 2 diabetes mellitus who presented to the emergency department via EMS from [facility] yesterday afternoon after x-ray showed a right hip fracture. The patient provides the following history. She had a fall last and was seen in the ED at [facility] in [place] where she had x-rays of her left knee and right hip which were reportedly negative for fracture. She was discharged with instructions to take [id number] medications to control her pain. She had been taking Aleve and Tylenol without much benefit. Due to the pain she had not been getting around well at home and instead of using her cane she had been using a wheeled walker though not doing well. She was seen in the ED at this facility on 03/06/2023 for evaluation of left-sided weakness and slurred speech which was attributed to hypoglycemia (glucose was 38 mg/dL at that time) as her symptoms resolved after receiving glucose and glucagon.? She was admitted to the hospital with weakness for PT consult with goals for rehab placement due to ongoing pain in the left knee and right hip from the fall last week. Physical therapist's notes that the patient seemed to be weak in the right leg and felt it was due
== END 2023-03-11 21:15 | disposition short-term general hospital (02) ==
LOC: ANHED 19:04 → ANH3MEDSUR 03-10 20:12
PROVIDERS: Physician Assistant; Admitting Provider Family Medicine; Emergency Provider Emergency Medicine; PCP Internal Medicine; Visit Provider Family Medicine
DX: S72.001A Fracture of unspecified part of neck of right femur, initial encounter for closed fracture (principal); W19.XXXA Unspecified fall, initial encounter; I45.10 Unspecified right bundle-branch block; E11.9 Type 2 diabetes mellitus without complications; E78.5 Hyperlipidemia, unspecified; I10 Essential (primary) hypertension; M25.562 Pain in left knee; D64.9 Anemia, unspecified; J38.01 Paralysis of vocal cords and larynx, unilateral; Z99.89 Dependence on other enabling machines and devices; Z85.3 Personal history of malignant neoplasm of breast; Z90.13 Acquired absence of bilateral breasts and nipples; Z92.21 Personal history of antineoplastic chemotherapy; Z87.891 Personal history of nicotine dependence; Z79.1 Long term (current) use of non-steroidal anti-inflammatories (NSAID); Z79.84 Long term (current) use of oral hypoglycemic drugs; Z79.891 Long term (current) use of opiate analgesic; Z79.899 Other long term (current) drug therapy
CPT/HCPCS: 36415; 72192; 73502; 80048; 80053; 82948; 83735; 84100; 85025; 85610; 85730; 86850; 86900; 86901; 93005; 96374; 96375; 99285; A9270; G0378; J1650; J2270; J2405; J7030

== ENCOUNTER 2023-04-23 13:50 | Observation (INO) | payer OTHER, SELFPAY ==
[2023-04-23] VITALS (7 sets, daily range): BP systolic 135–174; BP diastolic 67–81; PULSE 68–85; RESP 18–22; TEMP 36.4–36.6; O2SAT 96–99
--- NOTE | ~2023-04-23 | XR_ITS ---
EXAM: XR knee LT 3V DATE: 04/23/2023 16:36 HISTORY: PAIN TO LEFT KNEE SAID SHE COULD NOT BEAR WEIGHT ON . COMPARISON: None available. FINDINGS: Severely decreased mineralization. Possible cortical irregularity along the medial aspect of the medial femoral condyle. Mild posterior displacement of the tibia relative to the femoral condy les. No lytic or blastic lesion. Moderate tricompartmental arthritis. No erosion or periosteal change . Moderate volume knee joint effusion. IMPRESSION: Possible MCL origin avulsion fracture. Posterior tibial subluxation, may reflect ligament ous injury. Severe osteopenia which decreases sensitivity for fracture detection. CT of the knee would be helpful to assess for occult fracture and confirm the presence of MCL avulsio n fracture. Given the possibility of ligamentous injury, timely MRI of the knee is also advised. Reviewed, dictated and finalized at location K. IMPRESSION: Possible MCL origin avulsion fracture. Posterior tibial subluxation , may reflect ligamentous injury. Severe osteopenia which decreases sensitivity for fracture detection. CT of the knee would be helpful to assess for occult fracture and confirm the p resence of MCL avulsion fracture. Given the possibility of ligamentous injury, timely MRI of the knee is also advised.
--- NOTE | ~2023-04-23 | US_ITS ---
EXAMINATION: US venous doppler [facility] DATE: 04/23/2023 15:37 INDICATION: Bilateral lower limb swelling and left lower limb pain TECHNIQUE: Grayscale ultrasound images without and with compression and Doppler ultrasound images of the bilateral lower extremity veins were obtained. COMPARISON: None. FINDINGS: The visualized portions of right common femoral vein, profunda (deep) femoral vein, femoral vein, pop liteal vein, peroneal veins, gastrocnemius vein and greater saphenous vein outflow are patent. The ri ght posterior tibial veins is patent and compressible. There is noncompressible thrombus in the secon d right posterior tibial vein. The visualized portions of left common femoral vein, profunda femoral vein, femoral vein, popliteal v ein, posterior tibial veins, peroneal veins, gastrocnemius vein and greater saphenous vein outflow ar e patent. IMPRESSION: 1. . Whafz-oal-mavp deep venous thrombosis in one of the paired posterior tibial veins at the right calf. 2. No deep venous necrosis in the left lower limb. Reviewed, dictated and finalized at location B. IMPRESSION: 1. . Sszqn-vni-fnru deep venous thrombosis in one of the paired posterior tibi al veins at the right calf. 2. No deep venous necrosis in the left lower limb.
--- NOTE | ~2023-04-23 | CT_ITS ---
CT OF left knee EXAMINATION: CT knee LT wo con DATE: 04/23/2023 17:53 INDICATION: Possible fracture. TECHNIQUE: Computed tomography (CT) of the left knee was performed without intravenous contrast. Auto mated exposure control and iterative reconstruction technique were employed. The dose-length product was 546.14 mGy-cm. COMPARISON: X-ray left knee, same date. FINDINGS: Severely decreased bone mineral density. No definite acute fracture. No subluxation or dislocation. T ricompartmental osteoarthritic changes. Ossific fragments adjacent to the medial aspect of the medial femoral condyle, with sclerotic margins. Similar ossific fragments adjacent to the posterior aspect of the tibial plateau at the midline, with sclerotic margins. Moderate volume joint fluid. IMPRESSION: No definite acute fracture. Chronic appearing ossific fragments adjacent to the MFC and posterior to the tibial plateau as can be seen with remote ACL and PCL avulsion injuries. Moderate joint effusion. Reviewed, dictated and finalized at location K.
[2023-04-23 16:15] LABS: Alanine Aminotransferase 11 U/L (6-35); Albumin Level 3.8 g/dL (3.5-5.1); Alkaline Phosphatase 80 U/L (38-126); Anion Gap 4 mmol/L (8-16); Aspartate Amino Transferase 18 U/L (14-36); Bilirubin,Total 0.6 mg/dL (0.2-1.3); Blood Urea Nitrogen 9 mg/dL (7-17); Carbon Dioxide 28 mmol/L (22-30); Chloride 106 mmol/L (98-107); Estimated CRCL calculation 89 ml/min; Estimated Glomerular Filt Rate > 60; Glucose 118 mg/dL (65-110); Potassium 3.6 mmol/L (3.4-5.0); Sodium 138 mmol/L (137-145)
[2023-04-23 16:30] LABS: Prothrombin Time 13.6 Seconds (11.1-14.7)
--- NOTE | 2023-04-23 17:04 | ED.EXTPRO ---
HPI - Extremity Problem General Chief complaint: Extremity Problem,Nontraumatic Stated complaint: L leg pain Time Seen by Provider: 04/23/23 14:13 History of Present Illness HPI Narrative: Patient is a 72-year-old female who presents ER with left knee pain. Patient was discharged from rehab yesterday where she was recovering from a broken hip that been surgically repaired at [facility]. Patient reports that she was walking today and was having pain in her left knee which was brand new for her. She denies a fall but reports too weak to walk due to the pain at this time. She also reports new bilateral lower extremity edema that is occurred over last 24 hours. She reports compliance with home medications. She does take lisinopril and hydrochlorothiazide. Patient denies history of DVT. No calf pain. Denies any pain in her right leg which was this surgically corrected leg. Related Data Home Medications Medication Instructions Recorded Confirmed hydrochlorothiazide 25 mg tablet 25 mg PO DAILY 03/07/23 04/23/23 lisinopril 40 mg tablet 40 mg PO DAILY 03/07/23 04/23/23 metformin 500 mg tablet 1,000 mg PO BID 03/07/23 04/23/23 simvastatin 20 mg tablet 20 mg PO HS 03/07/23 04/23/23 benzonatate 200 mg capsule 200 mg PO TID PRN Cough 04/23/23 04/23/23 dapagliflozin propanediol 10 mg 10 mg PO DAILY 04/23/23 04/23/23 tablet (Farxiga) glimepiride 2 mg tablet 2 mg PO DAILY 04/23/23 04/23/23 glimepiride 4 mg tablet 4 mg PO DAILY 04/23/23 04/23/23 oxycodone 5 mg tablet 5 mg PO BID PRN Pain 04/23/23 04/23/23 pioglitazone 30 mg tablet 30 mg PO DAILY 04/23/23 04/23/23 potassium chloride 20 mEq oral 20 meq PO DAILY 04/23/23 04/23/23 packet (Klor-Con) tramadol 50 mg tablet 50 mg PO Q12H PRN Pain 04/23/23 04/23/23 Allergies Allergy/AdvReac Type Severity Reaction Status Date / Time No Known Allergies Allergy Verified 04/23/23 13:57 Review of Systems Review of Systems: All systems reviewed & are unremarkable except as noted in HPI and below Constitutional: Constitutional: Reports no additional constitutional complaints ENT: Reports system reviewed and no additional complaints, except as documented Cardiovascular: Cardiovascular: Reports no additional cardiovascular complaints Respiratory: Respiratory: Reports no additional respiratory complaints Gastrointestinal: Gastrointestinal: Reports no additional gastrointestinal complaints Musculoskeletal: Musculoskeletal: Reports arthralgias and Denies joint swelling Comments: Leg edema PMFSH Past Medical History Medical History Cancer of left breast Status post mastectomy and chemotherapy. Hyperlipidemia Hypertension Type 2 diabetes mellitus Vertigo Vocal cord paralysis, unilateral partial Surgical History Surgical History History of bilateral mastectomy History of craniotomy History of hysterectomy Social History Social History Social History: Surrogate medical decision maker: Code status: Full code. Smoking status: Former smoker Tobacco type: cigarettes Alcohol intake: never Substance use: never Substance use type: does not use Do You Feel Safe in your Home?: Yes Lack of Transportation: No Lack of Food: Never True Current Housing: I Have Housing Concerned About Future Housing: No Difficulty Paying Gas/Electric Bills: No Difficulty Paying for Meds: No Currently Unemployed: No Education: High School Diploma/GED Difficulty w/ Childcare or Family Care: No Living arrangements: alone Spiritual care concerns: No Exam Narrative: GENERAL: Well-appearing, morbidly obese, and in no acute distress. HEAD: Normocephalic, atraumatic. EYES: PERRL and EOMI. ENT: Mucous membranes moist. NECK: Supple. CHEST: Clear to auscultation. No respiratory distress. HEART: R
[2023-04-23 17:08] LABS: Partial Thromboplastin Time 20.1 SECONDS (22.3-36.8)
[2023-04-23 18:29] LABS: Basophils Percent Auto 0.1 % (0.2-1.2); Eosinophils Absolute Auto 0.1 K/mm3 (0-0.3); Eosinophils Percent Auto 0.6 % (0-4.4); Hemoglobin 11.2 g/dL (12.0-15.0); Immature Granulocyte Absolute 0.03 K/mm3 (0.00-0.031); Immature Granulocyte Percent A 0.4 % (0-0.5); Lymphocytes Absolute Auto 1.99 K/mm3 (0.9-3.2); Lymphocytes Percent Auto 24.2 % (18.3-44.2); Mean Corpuscular HGB Conc 31.1 g/dl (32-36); Mean Corpuscular Hemoglobin 30.9 pg (26-34); Mean Corpuscular Volume 99.2 fl (80-100); Mean Platelet Volume 10.9 fl (7.4-10.4); Monocytes Absolute Auto 0.7 K/mm3 (0.1-0.6); Monocytes Percent Auto 8.3 % (2.6-8.5); Neutrophils Absolute Auto 5.5 K/mm3 (1.3-6.7); Neutrophils Percent Auto 66.4 % (45.5-73.1); Platelet Count Result 238 k/mm3 (150-375); Red Blood Count 3.63 M/mm3 (4.2-5.4); Red Cell Distribution Width 15.4 % (11.5-14.5); White Blood Count 8.2 K/mm3 (4.5-10.0)
--- NOTE | 2023-04-23 19:04 | PC.NURSE ---
Bedside report given to Vivian RN, all questions answered
[2023-04-23] MEDS: ENOXAPARIN 120 MG/0.8 ML SYRINGE 114 MG SUB-Q (19:47)
--- NOTE | 2023-04-23 20:28 | PM.IMHP ---
H&P: HPI History of Present Illness Date/Time: 04/23/23 20:28 Chief Complaint: leg pain Narrative: This is a 72-year-old female with past medical history significant type diabetes mellitus, hypertension, breast CA. patient recently had a right hip replacement underwent rehabilitation and discharged home comes to our emergency room with complaints of right lower extremity pain unable to stand up. Patient was found to have acute DVT. Patient denies any shortness of breath, cough, chest pain, nausea vomiting or diarrhea. States that she was doing fairly well. Patient has been admitted for further evaluation management and treatment. EXAMINATION: US venous doppler LE BI DATE: 04/23/2023 15:37 INDICATION: Bilateral lower limb swelling and left lower limb pain TECHNIQUE: Grayscale ultrasound images without and with compression and Doppler ultrasound images of the bilateral lower extremity veins were obtained. COMPARISON: None. FINDINGS: The visualized portions of right common femoral vein, profunda (deep) femoral vein, femoral vein, popliteal vein, peroneal veins, gastrocnemius vein and greater saphenous vein outflow are patent. The right posterior tibial veins is patent and compressible. There is noncompressible thrombus in the second right posterior tibial vein. The visualized portions of left common femoral vein, profunda femoral vein, femoral vein, popliteal vein, posterior tibial veins, peroneal veins, gastrocnemius vein and greater saphenous vein outflow are patent. IMPRESSION: 1.? . Utpeg-ojp-csch deep venous thrombosis in one of the paired posterior tibial veins at the right calf. 2. No deep venous necrosis in the left lower limb. EXAM:? XR knee LT 3V DATE: 04/23/2023 16:36 HISTORY: PAIN TO LEFT KNEE SAID SHE COULD NOT BEAR WEIGHT ON . COMPARISON:? None available. FINDINGS:? Severely decreased mineralization. Possible cortical irregularity along the medial aspect of the medial femoral condyle. Mild posterior displacement of the tibia relative to the femoral condyles. No lytic or blastic lesion. Moderate tricompartmental arthritis. No erosion or periosteal change. Moderate volume knee joint effusion. IMPRESSION: Possible MCL origin avulsion fracture. Posterior tibial subluxation, may reflect ligamentous injury. Severe osteopenia which decreases sensitivity for fracture detection. CT of the knee would be helpful to assess for occult fracture and confirm the presence of MCL avulsion fracture. Given the possibility of ligamentous injury, timely MRI of the knee is also advised. CT OF? left knee EXAMINATION: CT knee LT wo con DATE: 04/23/2023 17:53 INDICATION: Possible fracture. TECHNIQUE: Computed tomography (CT) of the left knee was performed without intravenous contrast. Automated exposure control and iterative reconstruction technique were employed. The dose-length product was 546.14 mGy-cm. COMPARISON: X-ray left knee, same date. FINDINGS: Severely decreased bone mineral density. No definite acute fracture. No subluxation or dislocation. Tricompartmental osteoarthritic changes. Ossific fragments adjacent to the medial aspect of the medial femoral condyle, with sclerotic margins. Similar ossific fragments adjacent to the posterior aspect of the tibial plateau at the midline, with sclerotic margins. Moderate volume joint fluid. IMPRESSION: No definite acute fracture. Chronic appearing ossific fragments adjacent to the MFC and posterior to the tibial plateau as can be seen with remote ACL and PCL avulsion injuries. Moderate joint effusion. Review of Systems Review of Systems: Right leg swelling and pain Constitutional: Constitutional: Denies chills, Denies fatigue, Denies fever(s), Denies malaise and Denies night sweats Eyes: Eyes: Denies change in vision ENT: Denies dysphagia and Denies odynophagia Cardiovascular: Cardiovascular: Denies chest pain and Reports leg edema Respiratory:
[2023-04-23] MEDS: ACETAMINOPHEN 500 MG TABLET 1000 MG PO (21:34)
--- NOTE | 2023-04-23 22:03 | ADMGEN ---
This patient, Jeimy Penn, was admitted to Medical Room 341-01. Patient/family oriented to hospital policies and general routines including ID bracelet, bed and alarms, visiting hours, pain management, procedures, bathroom and other care routines, personal items, smoking policy, room service/diet, and visiting hours. Information on how to activate the Rapid Response Team has been discussed. Patient/Family are encouraged to report perceived risks to care and to ask questions if they do not understand what they are told or what they should do.
[2023-04-24 01:55] VITALS: BMI 36.2
[2023-04-24 06:55] VITALS: BP 148/66; PULSE 70; RESP 20; TEMP 36.7; O2SAT 99
[2023-04-24] MEDS: hydroCHLOROthiazide 25 MG TABLET PO (09:03)
[2023-04-24] MEDS: EMPAGLIFLOZIN 25 MG TABLET PO (09:03)
[2023-04-24] MEDS: PIOGLITAZONE HCL 30 MG TABLET PO (09:03)
[2023-04-24] MEDS: lisinopriL 20 MG TABLET 40 MG PO (09:03)
--- NOTE | 2023-04-24 10:59 | PCPTNOTE ---
Spoke with hospitalist regarding pt requiring medical management prior to PT evaluation. Hospitalist, Dr. Reed, in [facility] waiting to see pt at this time.
[2023-04-24] MEDS: APIXABAN 5 MG TABLET 10 MG PO ×2 (12:21→20:25)
[2023-04-24 12:25] LABS: Glucose Point of Care 128 mg/dl (65-105)
--- NOTE | 2023-04-24 13:25 | PM.IMPN ---
Progress Note: A&P Assessment and Plan (1) DVT (deep venous thrombosis): Code(s): I82.409 - Acute embolism and thrombosis of unspecified deep veins of unspecified lower extremity Status: Acute (2) Knee pain: Code(s): M25.569 - Pain in unspecified knee Status: Acute (3) Abnormality of gait: Code(s): R26.9 - Unspecified abnormalities of gait and mobility Status: Acute (4) Type 2 diabetes mellitus: Code(s): E11.9 - Type 2 diabetes mellitus without complications Status: Acute Plan 72-year-old female presents to the ED with the right knee pain. Patient was discharged from rehab 04/22/2023 were she was rehabilitating from hip fracture which was surgically repaired at [facility]. Patient was up and walking without any pain until she was discharged home when she started having pain in her knee and noted increased swelling. She was unable to walk due to the pain and hence came to the ED for re-evaluation. She denies any cough pain labs are unremarkable. Venous duplex was performed which showed acute below the knee DVT in 1 of the paired posterior tibial veins at right calf. No DVT on the left leg. She has been started on Lovenox. Will switch to Eliquis today to continue for acute DVT treatment. No associated shortness of breath or chest pain or hypoxia to suggest PE. PT OT to see and rn case management for placement Subjective Date/time seen: 04/24/23 13:25 Interval history: 72-year-old female presents to the ED with the right knee pain. Patient was discharged from rehab 04/22/2023 were she was rehabilitating from hip fracture which was surgically repaired at [facility]. Patient was up and walking without any pain until she was discharged home when she started having pain in her knee and noted increased swelling. She was unable to walk due to the pain and hence came to the ED for re-evaluation. She denies any cough pain labs are unremarkable. Venous duplex was performed which showed acute below the knee DVT in 1 of the paired posterior tibial veins at right calf. No DVT on the left leg. She has been started on Lovenox. Will switch to Eliquis today to continue for acute DVT treatment. No associated shortness of breath or chest pain or hypoxia to suggest PE. PT OT to see and rn case management for placement Review of Systems Review of Systems: All systems reviewed & are unremarkable except as noted in HPI and below Exam Narrative: GENERAL: Well-appearing,? morbidly obese, and in no acute distress. HEAD: Normocephalic, atraumatic. EYES: PERRL and EOMI. ENT: Mucous membranes moist. NECK: Supple. CHEST: Clear to auscultation.? No respiratory distress. HEART: Regular rate and rhythm.? No murmur heard.? Normal peripheral pulses. ABDOMEN: Soft, nontender, nondistended. EXTREMITIES:? +2 edema. Limited range of motion on right hip No range of motion abnormalities the left lower extremity.? Normal upper extremities. SKIN: Warm, dry, no rash. NEURO:? Alert and oriented x3. PSYCH: Normal mood and affect. Objective Data Vital Signs Vital Signs: Vital Signs - 24 hr 04/23/23 13:42 04/23/23 14:11 04/23/23 15:22 Temperature 97.5 F L Pulse Rate 70 74 Respiratory Rate 21 H 22 H Blood Pressure 174/74 H 167/81 H Pulse Oximetry 98 98 99 Oxygen Delivery Room Air Room Air 04/23/23 17:31 04/23/23 19:00 04/23/23 21:50 Temperature Pulse Rate 76 71 85 Respiratory Rate 20 18 20 Blood Pressure 137/70 135/69 170/78 H Pulse Oximetry 99 99 96 Oxygen Delivery 04/23/23 22:18 04/23/23 23:19 04/24/23 06:55 Temperature 97.8 F 98.0 F Pulse Rate 68 70 Respiratory Rate 20 20 Blood Pressure 142/67 H 148/66 H Pulse Oximetry 99 99 Oxygen Delivery Room Air 04/24/23 09:05 Temperature Pulse Rate Respiratory Rate Blood Pressure Pulse Oximetry Oxygen Delivery Room Air Intake/Output Intake/Output: Intake & Output 04/21/23 04/22/23 04/23/23 04/24/23 22:59 23:59 23:59 23:59
--- NOTE | 2023-04-24 13:49 | PCOTNOTE ---
Waiting on OT evaluation at this time. Per PT who spoke with hospitalist regarding pt requiring medical management prior to evaluation, with hospitalist in agreement to see pt. when safe and appropriate.
[2023-04-24 14:05] VITALS: BP 141/65; PULSE 71; RESP 17; TEMP 36.5; O2SAT 100
[2023-04-24 17:29] LABS: Glucose Point of Care 123 mg/dl (65-105)
[2023-04-24 20:09] VITALS: BP 131/79; PULSE 70; RESP 18; TEMP 36.4; O2SAT 100
[2023-04-24] MEDS: SIMVASTATIN 20 MG TABLET PO (20:25)
[2023-04-24 21:25] LABS: Glucose Point of Care 173 mg/dl (65-105)
[2023-04-24] MEDS: ACETAMINOPHEN 325 MG TABLET 650 MG PO (21:31)
[2023-04-24] MEDS: traMADol HCL (*CRX) 50 MG TABLET PO (22:40)
[2023-04-25] MEDS: traMADol HCL (*CRX) 50 MG TABLET PO (04:12)
[2023-04-25 06:00] VITALS: BP 106/60; PULSE 60; RESP 18; TEMP 36.1; O2SAT 97
[2023-04-25] MEDS: hydroCHLOROthiazide 25 MG TABLET PO (08:58)
[2023-04-25] MEDS: EMPAGLIFLOZIN 25 MG TABLET PO (08:58)
[2023-04-25] MEDS: PIOGLITAZONE HCL 30 MG TABLET PO (08:58)
[2023-04-25] MEDS: lisinopriL 20 MG TABLET 40 MG PO (08:58)
[2023-04-25] MEDS: APIXABAN 5 MG TABLET 10 MG PO ×2 (08:58→20:34)
[2023-04-25 14:00] VITALS: BP 147/92; PULSE 69; RESP 13; TEMP 36.4; O2SAT 96
--- NOTE | 2023-04-25 14:56 | PM.DS ---
DS: Admitting Diagnosis Discharge Date 04/25/23 Admitting Diagnosis Leg pain DS: Discharge Diagnosis Discharge Diagnosis (1) DVT (deep venous thrombosis): Code(s): I82.409 - Acute embolism and thrombosis of unspecified deep veins of unspecified lower extremity Status: Acute (2) Knee pain: Code(s): M25.569 - Pain in unspecified knee Status: Acute (3) Abnormality of gait: Code(s): R26.9 - Unspecified abnormalities of gait and mobility Status: Acute (4) Type 2 diabetes mellitus: Code(s): E11.9 - Type 2 diabetes mellitus without complications Status: Acute DS: Summary Hospital Course Reason for hospitalization: 72yo female with HTN, DM and cancer here for knee pain. Patient was discharged from rehab 04/22/2023 were she was rehabilitating from hip fracture which was surgically repaired 03/12/23 at [facility]. Please see H&P for details. Hospital Course: Patient was up and walking without any pain until she was discharged home when she started having pain in her knee and noted increased swelling. She was unable to walk due to the pain and hence came to the ED for re-evaluation. Lab work was unrevealing. Knee xray showing possible MCL origin avulsion fracture with posterior tibial subluxation that may reflect ligamentous injury. CT left knee showing no definitive fracture but chronic appearing ossific fragments adjacent to the MFC and posterior to the tibial plateau with moderate joint effusion. Venous doppler showing below the knee DVT on one of the paired posterior tibial veins right calf. She was given therapeutic Lovenox and started on Eliquis. She worked with PT/OT. She did well and was accepted for SNF care. She did well and was able to be discharged on 04/25/23 Status at Discharge Cognitive/behavioral status at discharge: stable Time Spent with Patient Time attestation: Total time spent providing and/or coordinating discharge services: 35 minutes Time spent: Greater than 30 minutes Exam Narrative: AF Gen - NARD Chest - CTA bilaterally, nml RR CV - RRR S1/S2 Abd - Soft, NT/ND, Positive BS Ext - 1+ pedal edema. right hip incision is clean, dry and intact Neuro - Alert and oriented. Nonfocal exam. Psych - Nml mood and affect Skin - Warm and dry DS: Data Data Completed and Pending Labs on day of discharge: Labs from last 24 hours 04/24/23 04/24/23 20:14 17:07 POC Capillary Glucose 173 H 123 H Discharge Plan Discharge Attending physician on discharge: Jarad Johnson Discharging Clinician: Jarad Johnson Anticipated Discharge Date/Time: 04/25/23 15:07 Patient Disposition: SNF Activity: as tolerated Diet: heart healthy Discharge Instructions: Please check glucose before meals and before bed. Record for the doctor's review. Check blood pressure 1 to 2 times a day. Record for the doctor's review. Take precautions to avoid falls. Rise slowly from a lying or sitting position. Pause before standing or walking. Contact the doctor if the patient has any type of trauma, lightheadedness with standing or other worrisome symptoms. Avoid NSAIDs (ibuprofen, naproxen, Aleve). Tylenol is safe to take. Eliquis 10mg orally Q12HR through 04/29 THEN start Eliquis 5mg orally Q12HR on 04/30 Follow-up with the provider at the facility. Thank you for using [facility] for your health care needs. Patient Instructions: Apixaban (By mouth) Stand Alone Forms: General Discharge Information Follow-up/Referrals: ,Crow Garcia MD [Primary Care Provider] - Call for Appointment Discharge Medications: New Eliquis 5 mg Tablet 10 mg PO DIRECTED Qty: 60 0RF Rx Instructions: 10mg Q12HR through 04/29 THEN start Eliquis 5mg Q12HR on 04/30. acetaminophen 325 mg Tablet 650 mg PO Q6H PRN (Reason: Mild Pain (1-3) Or Fever) Qty: 10 0RF Continued metformin 500 mg tablet 1,000 mg PO BID
[2023-04-25 16:52] LABS: SARS-CoV-2 RNA PCR Positive (Negative)
[2023-04-25 20:30] VITALS: BP 136/67; PULSE 77; RESP 18; TEMP 36.6; O2SAT 97
[2023-04-25] MEDS: SIMVASTATIN 20 MG TABLET PO (20:34)
[2023-04-25 22:18] LABS: Glucose Point of Care 149 mg/dl (65-105)
== END 2023-04-25 20:57 ==
LOC: ANHED 19:18 → ANH3MED 04-25 10:52
PROVIDERS: Admitting Provider Internal Medicine; Emergency Provider Emergency Medicine; PCP Internal Medicine; Visit Provider Internal Medicine
DX: I82.441 Acute embolism and thrombosis of right tibial vein (principal); U07.1 COVID-19; M25.462 Effusion, left knee; R26.9 Unspecified abnormalities of gait and mobility; E78.5 Hyperlipidemia, unspecified; I10 Essential (primary) hypertension; E11.9 Type 2 diabetes mellitus without complications; Z85.3 Personal history of malignant neoplasm of breast; Z90.12 Acquired absence of left breast and nipple; Z96.641 Presence of right artificial hip joint; Z92.3 Personal history of irradiation; Z87.891 Personal history of nicotine dependence; Z79.84 Long term (current) use of oral hypoglycemic drugs; Z79.891 Long term (current) use of opiate analgesic; Z79.899 Other long term (current) drug therapy
CPT/HCPCS: 36415; 73562; 73700; 80053; 82948; 85025; 85610; 85730; 87635; 93970; 96372; 97161; 97165; 99285; A9270; G0378; J1650